=== PATIENT | female | born 1965 | race Caucasian/White ===

== ENCOUNTER 2017-11-02 09:02 | Emergency (ER) | payer OTHER ==
--- NOTE | 2017-11-02 09:04 | PDOC ---
Attending Attestation - Resident Resident Name: Saran Bess - ED Attending Attestation I have performed the following: I have examined & evaluated the patient, The case was reviewed & discussed with the resident, I agree w/resident's findings & plan, Exceptions are as noted - HPI HPI: 11/02/17 10:01 51-year-old female with a history of hypertension presents emergency Department with 3 days of intermittent left-sided nonradiating chest pain. Chest pain is not exertional and occurs at random moments during the day, she reports triggered by stressful events currently occurring in her life. She reports 2 episodes of sudden squeezing on the left side of her chest that lasted for 1-2 seconds and resolved on its own. She reports otherwise the pain feels more like a dull sensation. She presented today due to persistence of the pain. She reports the pain initially occurred when she was having an argument with her mother on the phone. She denies any associated symptoms of shortness of breath, dizziness, diaphoresis, nausea/vomiting. She reports the pain is not worse with inspiration. She drove to [place] last week, reports it was a [address] she took a break. Denies fevers, chills, chest pain, abdominal pain, lower extremity edema or calf pain. Denies a family history of cardiac disease. Patient smoked for 1-2 years 20-30 years ago. Has never had chest pain prior to 3 days ago. - Physicial Exam PE: 11/02/17 10:22 GENERAL: Awake, alert, and fully oriented, in no acute distress HEAD: No signs of trauma EYES: PERRLA, EOMI, sclera anicteric, conjunctiva clear ENT: Auricles normal inspection, hearing grossly normal, nares patent, oropharynx clear without exudates. Moist mucosa NECK: Normal ROM, supple, no lymphadenopathy, JVD, or masses LUNGS: Good air movemebt, fine crackles at the L lung base. No wheezes HEART: Regular rate and rhythm, normal S1 and S2, no murmurs, rubs or gallops ABDOMEN: Soft, nontender, normoactive bowel sounds. No guarding, no rebound. No masses EXTREMITIES: Normal range of motion, no edema. No clubbing or cyanosis. No cords, erythema, or tenderness NEUROLOGICAL: Normal speech, cranial nerves intact, negative pronator drift, 5/ 5 strength in all 4 extremities, normal sensation to light touch in all 4 extremities, normal cerebellar exam, normal gait, normal reflexes and tone SKIN: Warm, Dry, normal turgor, no rashes or lesions noted. - Medical Decision Making 11/02/17 10:24 51-year-old female with a history of hypertension presents to emergency Department with 3 days of intermittent left-sided nonexertional non radiating chest pain. Vitals remarkable for elevated blood pressure to 150s/110, rpt 150/ 94. Exam with fine crackles at the left lung base but otherwise unremarkable. EKG is nonischemic. Differential includes acute coronary syndrome, patient's heart scores 3, will repeat a second troponin if first is negative. Pulmonary embolism is a thought, however patient denies shortness of breath, chest pain is not pleuritic, patient is not hypoxic or tachycardic, no calf edema/pain, and has no risk factors. Fine crackles auscultated on exam likely atelectasis but pneumonia is a consideration. Unlikely pneumonia however as patient has no fevers or cough. Declines pain medication for now, will reassess. 11/02/17 13:50 Workup negative including troponin 2. Patient reports chest pain has resolved while here in the emergency department. Advised patient to follow-up with her primary doctor for referral to ct scan technician to complete her cardiac workup. Patient expresses understanding. She feels well and requests DC home. I discussed the physical exam findings, ancillary test results and final diagnoses with the patient. I answered all of the patient's questions. The patient was satisfied with the care received and felt comfortable with the discharge plan and treatment plan. The patient will call their primary care physician within 24 hours to arrange follow-up and will return to the Emergency Department with any new, persistent or worsening symptoms. Heart Score/ECG Review - History History: Slightly suspicious - Electrocardiogram EKG: Non specific repolarization disturbance - Age Age: 45-65 - Risk Factors Based on the list above the patient has:: 1-2 risk factors - Troponin Troponin: </= normal limit - Score Heart Score - Total: 3 #1 11/02/17 10:22 Twelve-lead EKG was performed and reviewed by me. Normal sinus rhythm, rate 81. Normal axis. Incomplete right bundle branch block. No ST elevations or T-wave inversions.
--- NOTE | 2017-11-02 09:21 | PDOC ---
History of Present Illness - History of Present Illness Initial Comments: 11/02/17 09:50 The patient is a 51 year old female with a history of HTN, who presents for evaluation of chest pain. The patient reports a 3 day history of intermittent sharp left sided chest tightness with an associated constant dull ache prompting her presentation to the ED for evaluation. She denies any worsening symptoms with exertion, but notes that she has been under a lot of social stressors lately. She otherwise denies associated symptoms including fevers, chills, cough, SOB, palpitations, nausea, vomiting, abdominal pain, leg swelling , or changes with urination or bowel movements. <Saran Bess - Last Filed: 11/02/17 09:50> <Sukhwinder Velasquez - Last Filed: 11/02/17 13:37> - General Chief Complaint: Chest Pain Stated Complaint: CHEST PAIN FOR SEVERAL DAYS Time Seen by Provider: 11/02/17 09:04 Past History <Saran Bess - Last Filed: 11/02/17 09:50> <Sukhwinder Velasquez - Last Filed: 11/02/17 13:37> - Past Medical History Allergies/Adverse Reactions: Allergies Allergy/AdvReac Type Severity Reaction Status Date / Time Sulfa (Sulfonamide Allergy Mild Rash Verified 11/02/17 09:23 Antibiotics) Home Medications: Ambulatory Orders Amlodipine Besylate 5 mg PO DAILY 11/02/17 Aspirin 162 mg PO ONCE 11/02/17 Biotin 1 tab PO DAILY 11/02/17 Certolizumab Pegol [Cimzia] 400 mg SQ ASDIR 11/02/17 Cholecalciferol (Vitamin D3) [Vitamin D3] 1,000 unit PO DAILY 11/02/17 Diclofenac Sodium 50 mg PO DAILY PRN 11/02/17 Leucovorin - 5 mg PO DAILY 11/02/17 Methotrexate [Mexate -] 15 mg PO Q7D 11/02/17 Nebivolol HCl [Bystolic] 2.5 mg PO DAILY 11/02/17 Tizanidine HCl [Zanaflex] 4 mg PO HS PRN 11/02/17 Review of Systems - Review of Systems Comments:: 11/02/17 09:52 Constitutional: No fevers, chills, fatigue, malaise HEENT: No Rhinorrhea, nasal congestion, visual changes Cardiovascular: Chest pain. No syncope, palpitations, lightheadedness Respiratory: No Cough, SOB, Hemoptysis, Gastrointestinal: No Abdominal pain, Nausea, Vomiting, Constipation, Diarrhea, Melena Genitourinary: No Dysuria, Frequency, Urgency, Hesitancy, Hematuria, Flank pain Musculoskeletal: No Myalgia, arthralgia Skin: No rashes, itching, bruising, pallor Neurologic: No Headache, Dizziness, Numbness, Weakness, or Tingling Psychiatric: No Hallucinations. No SI or HI <Saran Bess - Last Filed: 11/02/17 09:50> *Physical Exam - Physical Exam Comments: 11/02/17 09:53 General Appearance: Nourished. No Apparent Distress HEENT: EOMI, DOUGLAS. No Pharyngeal Erythema, Tonsillar Exudate, Tonsillar Erythema Neck: No Cervical Lymphadenopathy Respiratory/Chest: Lungs Clear, Normal Breath Sounds. No Crackles, Rales, Rhonchi, Wheezing Cardiovascular: Regular Rhythm, Regular Rate. No Murmur, Gallops, Rubs Gastrointestinal/Abdominal: Normal Bowel Sounds, Soft. No Guarding, Rebound, Tenderness Musculoskeletal: No CVA Tenderness Extremity: Normal Capillary Refill Integumentary: Normal Color, Dry, Warm Neurologic: Fully Oriented, Alert, Normal Mood/Affect, Normal Response, <Saran Bess - Last Filed: 11/02/17 09:50> - Vital Signs Last Vital Signs Temp Pulse Resp BP Pulse Ox 98.7 F 82 16 155/95 98 11/02/17 09:03 11/02/17 10:24 11/02/17 10:24 11/02/17 10:24 11/02/17 10:24 <Sukhwinder Velasquez - Last Filed: 11/02/17 13:37> Heart Score/ECG Review - History History: Slightly suspicious - Electrocardiogram EKG: Non specific repolarization disturbance - Age Age: 45-65 - Risk Factors Risk Factors Heart Score: Yes Hx Hypertension Based on the list above the patient has:: 1-2 risk factors - Troponin Troponin: </= normal limit - Score Heart Score - Total: 3 #1 ECG reviewed & interpreted by me at: 09:53 (Incomplete RBBB) General ECG Interpretation: Sinus Rhythm, Normal Rate, Normal Intervals, No acute ischemic changes <Saran Bess - Last Filed: 11/02/17 09:50> ED Treatment Course - LABORATORY CBC & Chemistry Diagram: 11/02/17 10:10 11/02/17 10:10 - ADDITIONAL ORDERS Additional order review: Laboratory Results 11/02/17 11/02/17 11/02/17 10:10 10:10 10:10 Sodium 135 L Potassium 3.9 Chloride 101 Carbon Dioxide 26 Anion Gap 8 BUN 19 H Creatinine 0.8 Creat Clearance w eGFR > 60 Random Glucose 97 Calcium 9.6 Total Bilirubin 0.4 AST 21 ALT 30 Alkaline Phosphatase 81 Creatine Kinase 98 Troponin I < 0.03 Total Protein 7.9 Albumin 4.6 11/02/17 10:10 RBC 4.82 MCV 94.6 MCHC 32.7 RDW 13.2 MPV 8.1 Neutrophils % 54.9 Lymphocytes % 36.3 Monocytes % 6.0 Eosinophils % 1.9 Basophils % 0.9 <Sukhwinder Velasquez - Last Filed: 11/02/17 13:37> Medical Decision Making - Medical Decision Making 11/02/17 09:53 The patient is a 51 year old female with a history of HTN, who presents for evaluation of chest pain. Differential includes but is not limited to: ACS, Arrhythmia, Musculoskeletal, Anxiety, Infectious, Metabolic derangement. Given the patient's history, we will obtain a cbc, cmp, 2 sets of cardiac enzymes, ekg , and chest plain film to evaluate further. We will continue to monitor and reassess in the meantime. <Saran Bess - Last Filed: 11/02/17 09:50> *DC/Admit/Observation/Transfer <Saran Bess - Last Filed: 11/02/17 09:50> - Discharge Dispostion Admit: No <Sukhwinder Velasquez - Last Filed: 11/02/17 13:37> Diagnosis at time of Disposition: Chest pain - Discharge Dispostion Disposition: HOME Condition at time of disposition: Good - Referrals Referrals: Sharee Carlson [Primary Care Provider] - - Patient Instructions Printed Discharge Instructions: DI for Chest Pain Additional Instructions: As discussed, follow up with your primary doctor within 2 days for follow up and referral to automatic toe laster. Return to the emergency department if you have any new, worsening, or concerning symptoms. - Post Discharge Activity
[2017-11-02 09:28] VITALS: PULSE 82; TEMP 98.7; BMI 26.2
[2017-11-02 10:21] LABS: BASO % 0.9 % (0-2.0); EOS % 1.9 % (0-4.5); HEMATOCRIT 45.6 % (32.4-45.2); HEMOGLOBIN 14.9 GM/dl (10.7-15.3); LYMPH % 36.3 % (8-40); MCH 30.9 pg (25.7-33.7); MCHC 32.7 g/dl (32.0-36.0); MEAN CELL VOLUME 94.6 fl (80-96); MEAN PLT VOLUME 8.1 fl (7.5-11.1); NEUT % 54.9 % (42.8-82.8); PLATELET COUNT 279 K/MM3 (134-434); RBC 4.82 M/mm3 (3.60-5.2); RDW 13.2 % (11.6-15.6); WHITE BLOOD COUNT 6.6 K/mm3 (4.0-10.8)
[2017-11-02 10:26] VITALS: BP 155/95
[2017-11-02 10:41] LABS: ALBUMIN 4.6 g/dl (3.5-5.0); ALK PHOS 81 U/L (32-92); ANION GAP 8 (8-16); BILIRUBIN,TOTAL 0.4 mg/dl (0.2-1.0); BLOOD UREA NITROGEN 19 mg/dl (7-18); CALCIUM 9.6 mg/dl (8.4-10.2); CHLORIDE 101 mmol/L (98-107); CO2 26 mmol/L (22-28); CREATININE 0.8 mg/dl (0.6-1.3); GLUCOSE,RANDOM 97 mg/dl (74-106); POTASSIUM 3.9 mmol/L (3.5-5.1); SGOT/AST 21 U/L (10-42); SGPT/ALT 30 U/L (10-40); SODIUM 135 mmol/L (136-145); TOT PROT 7.9 g/dl (6.4-8.3)
--- NOTE | 2017-11-03 08:35 | EKG ---
Test Reason : Blood Pressure : / mmHG Vent. Rate : 081 BPM Atrial Rate : 081 BPM P-R Int : 148 ms QRS Dur : 096 ms QT Int : 382 ms P-R-T Axes : 052 037 039 degrees QTc Int : 443 ms NORMAL SINUS RHYTHM INCOMPLETE RIGHT BUNDLE BRANCH BLOCK BORDERLINE ECG NO PREVIOUS ECGS AVAILABLE Confirmed by MARIO GOOD, FADI ([id number]) on 11/03/2017 8:34:48 AM Referred By: DR RODRIGUEZ Confirmed By:FADI MARTIN MD
== END 2017-11-02 13:46 | disposition home or self-care (01) ==
LOC: FER 09:02 → SUPCPDRO 09:02 → FER 13:46
DX: R07.9 Chest pain, unspecified (principal); I10 Essential (primary) hypertension
CPT/HCPCS: 36415; 71046-TC-FY; 80053; 82550; 84484; 85025; 93005; 99284-25